=== PATIENT | male | born 1950 | race Caucasian/White ===

== ENCOUNTER 2016-08-08 12:50 | Inpatient (IN) | payer OTHER ==
--- NOTE | ~2016-08-08 | CR72 ---
[facility] A Service of [facility] & [facility] RADIOLOGY TEXT RESULTS PATIENT: GILMAR MEI LOCATION: [place] [address] : [birth year] UNIT #: [id number] AGE: [address]: Gisell Thornton MD SEX: M ORDER DR: [id number] [facility] [address] [facility] [address]. [place], [place] [address] [id number] E MR#: [id number] Acc #: [id number] NAME: GILMAR MEI. : 1950 SEX: M STUDY DATE/TIME: 08/08/2016 14:43 UNIT: [facility] ROOM: STUDY DESCRIPTION: CR Chest Single View Portable Attending Physician: Amira Blake M.D. Ordering Physician: Amira Blake M.D. Primary Care Physician: Kailyn Angeles M.D. MEDICAL IMAGING REPORT This report is preliminary unless electronic signature is present EXAM Portable chest in 2 views, 08/08/2016. COMPARISON 03/17/2016 CLINICAL HISTORY Short of air, weakness for 2 months. FINDINGS Redemonstration of an elevated right hemidiaphragm. The exam is rotated but allowing for that, no convincing consolidation, effusion, pneumothorax, or suspicious nodule or other acute abnormality. Dictated by... Antonio Christy M.D. THIS IS AN ELECTRONICALLY VERIFIED REPORT Antonio Christy M.D. at 08/15/2016 10:44 AM KHADRA/royer TD: 08/08/2016 16:02 JOB #: [id number] MEDICAL IMAGING REPORT Page 1 of 1 COPY
--- NOTE | ~2016-08-08 | CO ---
Unit #: [id number] #: [id number] Patient: GILMAR MEI [id number] [address] [place], [place] [address] [id number] I MR#: [id number] NAME: GILMAR MEI. ROOM: [facility] Age: 65 Sex: M Admission Date: 08/08/2016 : 1950 Attending Physician: Gisell Thornton M.D. Primary Care Physician: Kailyn Angeles M.D. Consultation Date: 08/10/2016 CONSULTATION REPORT CHIEF COMPLAINT Right foot gangrene. HISTORY OF PRESENT ILLNESS This is a 65-year-old male with a history of multiple medical problems to include diabetes mellitus, peripheral vascular disease, tobacco abuse, previous left leg amputation, has ongoing right foot wounds, which have been unresponsive to conservative care. The patient notes that he has had a right foot wound for 2 years. He now has a 6 cm diameter right posterior heel ulcer with exposed bone, which has not responded to debridement and amniotic tissue grafting. He also has a plantar medial midfoot wound. He has obvious gangrene. Orthopedic consultation is requested for possible qihlj-bmu-ynpi amputation. He had recent ankle brachial indices, which show an ARIS of 0.95 and a toe brachial index of 0.32. MRI shows osteomyelitis of the posterior half of the right calcaneus. PAST MEDICAL HISTORY Diabetes; deep venous thrombosis, on Xarelto; hypertension; tobacco abuse (the patient smokes 3 packs per day); hyperlipidemia. PAST SURGICAL HISTORY Left chott-clw-eslf amputation, cholecystectomy, gastric bypass, mastoid surgery, hernia repair. HOME MEDICATIONS Oxycodone 30 mg p.o. b.i.d., Neurontin, Xarelto, glyburide, atorvastatin, lisinopril. ALLERGIES Promethazine, morphine, codeine. PHYSICAL EXAMINATION VITAL SIGNS: Height 145, BMI 25, temperature 99.4, pulse 86, blood pressure 122/61. GENERAL: Thin male, in no acute distress. MUSCULOSKELETAL: Examination of the right foot shows a 6 cm diameter posterior heel ulcer with exposed calcaneus. He has a 2 cm plantar medial midfoot wound. The foot is malodorous. Sensation is decreased in stocking distribution. DIAGNOSTIC STUDIES IMAGING STUDIES: MRI documents osteomyelitis of the posterior half of the calcaneus. Unit #: [id number] #: [id number] Patient: GILMAR MEI LABORATORY RESULTS: Hematocrit 24.7%. IMPRESSION 1. Right posterior calcaneal heel ulcer with osteomyelitis. 2. Right foot gangrene. 3. Peripheral vascular disease. 4. Diabetes. 5. Tobacco abuse. PLAN 1. The patient requires right vjiyb-kzs-gblt amputation. This procedure was described along with risks of bleeding, infection, nerve damage, failure to heal, need for higher level amputation, prolonged recovery time, inability to use a prosthesis. The patient understands the above risks and agrees to proceed. 2. The patient will receive 1 unit of packed red blood cells tonight prior to surgery. We will proceed with the surgery on 08/11/2016. Dictated by.Darwin Sue/charito TD: 08/12/2016 03:12 JOB #: [id number] CONSULTATION REPORT Page 1 of 1 X Luis Dillon MD X CONSULTATION REPORT
--- NOTE | ~2016-08-08 | CR127 ---
[facility] A Service of [facility] & [facility] RADIOLOGY TEXT RESULTS PATIENT: GILMAR MEI LOCATION: [place] [address] : [birth year] UNIT #: [id number] AGE: [address]: Gisell Thornton MD SEX: M ORDER DR: [id number] [facility] [address] [facility]. [place], [place] [address] [id number] E MR#: [id number] Acc #: [id number] NAME: GILMAR MEI. : 1950 SEX: M STUDY DATE/TIME: 08/08/2016 14:45 UNIT: [facility] ROOM: STUDY DESCRIPTION: CR Foot Complete Min 3 View Rt Attending Physician: Amira Blake M.D. Ordering Physician: Amira Blake M.D. Primary Care Physician: Kailyn Angeles M.D. MEDICAL IMAGING REPORT This report is preliminary unless electronic signature is present EXAM Right foot, 3 views. CLINICAL HISTORY Right foot oozing wound and redness. FINDINGS There is demineralization in the foot which appears to represent disuse osteopenia. There is a soft tissue defect over the heel that appears to expose or nearly expose the calcaneus. There is no aggressive appearing bone erosion or destruction. Dictated by... Antonio Christy M.D. THIS IS AN ELECTRONICALLY VERIFIED REPORT Antonio Christy M.D. at 08/15/2016 10:44 AM KHADRA/royer TD: 08/08/2016 16:03 JOB #: [id number] MEDICAL IMAGING REPORT Page 1 of 1 COPY
--- NOTE | ~2016-08-08 | MR59 ---
[facility] A Service of [facility] & [facility] RADIOLOGY TEXT RESULTS PATIENT: GILMAR MEI LOCATION: [facility] 319- : [birth year] UNIT #: [id number] AGE: [address]: Gisell Thornton MD SEX: M ORDER DR: [id number] [place] [id number] [facility]. [place], [place] [address] [id number] I MR#: [id number] Acc #: [id number] NAME: GILMAR MEI. : 1950 SEX: M STUDY DATE/TIME: 08/09/2016 18:27 UNIT: [address] ROOM: 319 STUDY DESCRIPTION: MR Foot WWo Contrast Rt Attending Physician: Gisell Thornton M.D. Ordering Physician: Jaden Lopez M.D. Primary Care Physician: Kailyn Angeles M.D. MRI CENTER REPORT This report is preliminary unless electronic signature is present. EXAM MRI of the right foot with and without contrast HISTORY 65-year-old diabetic male with diabetic wound right foot. Wound infection. Evaluate for osteomyelitis. Patient with stage 4 necrotic wound right foot. Prior left above knee amputation. COMPARISON Foot films right foot, 08/08/2016 FINDINGS A wound is located on the plantar aspect of the midfoot and also has open wound on heel and behind heel. Multiplanar multiecho imaging was performed of the right foot utilizing a high field magnet and dedicated protocol. Coronal and axial T1-weighted images were performed following IV gadolinium. The examination demonstrates a large penetrating ulcer along the plantar aspect of the mid foot measuring at least 3.4 cm medial to lateral dimension, about 2.2 cm AP dimension and about 11.0 mm in depth. No extension to bone is identified with this ulcer and no evidence of underlying abscess. A second ulcer is seen along the posterior foot at the level of the heel which extends down to the calcaneus. This ulcer measures at least 3.2 x 3.1 cm in greatest transverse dimensions. There is diffuse marrow edema with T1 marrow replacement within the posterior calcaneus with enhancement postcontrast. Findings are all compatible active osteomyelitis. No osteolysis identified. No drainable fluid collection or abscess. There is diffuse soft tissue swelling and edema throughout the foot with edema particularly around the plantar musculature and along the adductor STS. [facility] A Service of [facility] & [facility] RADIOLOGY TEXT RESULTS PATIENT: GILMAR MEI LOCATION: [facility] 319-01 : [birth year] UNIT #: [id number] AGE: [address]: Gisell Thornton MD SEX: M ORDER DR: armen. Findings are nonspecific and may represent subacute denervation change or nonspecific inflammation. There is marked thickening and increased signal and enhancement at the insertion of the central heel cord of the plantar fascia compatible with active fasciitis and probable tear of the central heel cord of the plantar fascia. Ankle and subtalar joint unremarkable. Ankle tendons unremarkable. IMPRESSION 1. Penetrating ulcer along the plantar aspect of the midfoot with some enhancement of the surrounding tissues compatible with active inflammation but no drainable fluid collection or abscess. No extension of the bone is seen at the level of the midfoot. 2. Large shallow but penetrating ulcer along the posterior heel with extensive marrow changes within the posterior half of the calcaneus compatible with active osteomyelitis and edema. No osteolysis identified. No drainable fluid collection or abscess. 3. Generalized soft tissue swelling and edema about the foot and ankle most likely related to chronic neurovascular disease. 4. Extensive edema along the plantar musculature with thickening and increased signal enhancement of the proximal central heel cord at its calcaneal attachment. Findings compatible with active tendinopathy and at least a high-grade partial tear. Secondary infection not excluded but considered less likely and again no discrete abscess or drainable fluid collection. Dictated by... Luis Love M.D. THIS IS AN ELECTRONICALLY VERIFIED REPORT Luis Love M.D. at 08/10/2016 5:23 PM OLINDA/sean TD: 08/10/2016 12:15 JOB #: [id number] MRI CENTER REPORT Page 1 of 1 COPY
--- NOTE | ~2016-08-08 | EKG ---
PATIENT: GILMAR MEI UNIT #: [id number] Ventricular Rate: 106 BPM Atrial Rate: 106 BPM P-R Interval: 136 ms QRS Duration: 124 ms Q-T Interval: 354 ms QTC Calculation(Bezet): 470 ms P Windsor: 39 degrees Calculated R Windsor: -47 degrees Calculated T Windsor: 23 degrees Diagnosis Line: Sinus tachycardia with occasional Premature Diagnosis Line: ventricular complexes Diagnosis Line: Right bundle branch block Diagnosis Line: Left anterior fascicular block Diagnosis Line: Bifascicular block Diagnosis Line: Abnormal ECG Diagnosis Line: When compared with ECG of 17-MAR-2016 12:11, Diagnosis Line: No significant change was found Diagnosis Line: Confirmed by KATELYN WELCH MD ([id number]) on Diagnosis Line: 08/09/2016 4:36:14 PM INTERPRETING MD: REBEKAH FRANK
--- NOTE | ~2016-08-08 | US136 ---
[facility] A Service of [facility] & [facility] RADIOLOGY TEXT RESULTS PATIENT: GILMAR MEI LOCATION: [place] [address] : [birth year] UNIT #: [id number] AGE: [address]: Gisell Thornton MD SEX: M ORDER DR: [id number] [facility] [address] [facility]. [place], [place] [address] [id number] I MR#: [id number] Acc #: [id number] NAME: GILMAR MEI. : 1950 SEX: M STUDY DATE/TIME: 08/09/2016 9:28 UNIT: C3A PCU ROOM: [facility] STUDY DESCRIPTION: U/L Ext Art Study Ltd Bil Attending Physician: Gisell Thornton M.D. Ordering Physician: Gisell Thornton M.D. Primary Care Physician: Kailyn Angeles M.D. MEDICAL IMAGING REPORT This report is preliminary unless electronic signature is present EXAM Ankle-brachial indices, 08/09/2016 HISTORY Right foot ulcer. Pain and swelling several months. Left amputation. IV left arm. Right side only. FINDINGS Right lower extremity ankle-brachial indices performed. All pressure measurements are in millimeters of mercury. Left brachial pressure not obtained due to intravascular access in the left upper extremity. Patient is status post left lower extremity amputation by history. Right brachial pressure 119. Distal right lower extremity pressures as follows: Dorsalis pedis at ankle 113, posterior tibial at ankle 107, great toe 38. Ankle-brachial index 0.95. Pulse volume recordings multiphasic but of low amplitude at the right posterior tibial artery, weakly triphasic at the right dorsalis pedis artery and biphasic at the right great toe. IMPRESSION 1. Ankle-brachial index on the right is 0.95. This is a normal value suggesting adequate perfusion of the right lower extremity through the level of the ankle in the resting state. 2. Markedly diminished right toe-brachial index of 0.32. This suggests significant small vessel disease in the right foot distal to the level of the ankle. On the basis of this value, the patient may be at significant risk for ischemic sequelae in the right foot. Please correlate with the patient's clinical presentation and risk factors. If it would assist in management, right lower extremity arterial anatomy could be further evaluated with CT angiography or standard catheter angiography. The small vessels of the right foot might best STS. [facility] A Service of [facility] RADIOLOGY TEXT RESULTS PATIENT: GILMAR MEI LOCATION: [place] [address] : [birth year] UNIT #: [id number] AGE: [address]: Gisell Thornton MD SEX: M ORDER DR: be further assessed with standard catheter angiography if the patient is a candidate. Dictated by... To Varela M.D. THIS IS AN ELECTRONICALLY VERIFIED REPORT To Varela M.D. at 08/11/2016 10:53 PM Gage TD: 08/10/2016 11:00 JOB #: [id number] MEDICAL IMAGING REPORT Page 1 of 1 COPY
--- NOTE | ~2016-08-08 | CO ---
Unit #: [id number] #: [id number] Patient: GILMAR MEI [id number] [address] [place], [place] [address] [id number] I MR#: [id number] NAME: GILMAR MEI. ROOM: 319 Age: 65 Sex: M Admission Date: 08/08/2016 : 1950 Attending Physician: Gisell Thornton M.D. Primary Care Physician: Kailyn Angeles M.D. Consultation Date: 08/09/2016 CONSULTATION REPORT REASON FOR CONSULTATION Antibiotic management in a patient with right foot ulcer. HISTORY OF PRESENT ILLNESS This is a 65-year-old male who has a history of diabetes in past, diabetic foot wounds that required an amputation of his left lower extremity. The patient reports to the admitting physician that he has had a right foot wound for years. However, he tells me he has only had it for a few days. It appears that according to the history and physical the patient was seen at the Podiatry office and was recommended to come to the hospital due to infection. The patient denies any fevers to me. He reports that his blood sugars have been fairly controlled. He denies any shortness of breath, nausea, vomiting, diarrhea or any other discomfort. PAST MEDICAL HISTORY Previous diabetic foot ulcer on the left side status post AKA, diabetes type 2 uncontrolled with peripheral neuropathy, hypertension, history of DVT, chronic back pain, history of vestibulopathy with positional dizziness, hyperlipidemia, positive tobacco and BPH. PAST SURGICAL HISTORY Left-sided ptyhw-ftj-yqfh amputation, cholecystectomy, back surgery, gastric bypass surgery, mastoid surgery, hernia repair. SOCIAL HISTORY Positive tobacco. He lives with others. No recent alcohol abuse or drug abuse. ALLERGIES Promethazine, morphine and Codeine. MEDICATIONS The patient is currently on vancomycin and Zosyn. For other medications, please refer to patient's MAR. REVIEW OF SYSTEMS Negative except for as previously mentioned above. He does report that he has some pain in his foot and buttocks. PHYSICAL EXAMINATION GENERAL APPEARANCE: This is a no apparent distressed male who is currently awake, resting in the bed. VITAL SIGNS: Temperature 98.9. Pulse 85. Blood pressure 137/67. Respiratory rate 16. Unit #: [id number] #: [id number] Patient: GILMAR MEI HEENT: His pupils are equal. NECK: Supple. CARDIOVASCULAR: S1, S2. Regular rate and rhythm. PULMONARY: Fairly clear with sparse rhonchi noted. No wheezes. ABDOMEN: Positive bowel sounds. Soft and nontender. EXTREMITIES: A rather large foot wound that appears deep with some purulent drainage noted not only in the wound but there is drainage on the bed sheets. There is surrounding necrosis and surrounding cellulitis. He also has a heel wound that appears to have mostly granulating tissue and no significant drainage. The patient's buttocks show erythema but no open skin breakdown. DIAGNOSTIC STUDIES LABORATORY: BUN 11, creatinine 0.5, sodium 133, potassium 3.6, chloride 100, CO2 23, bilirubin 0.5, AST 13, ALT 10, lactic acid 0.9. WBC count 17, hemoglobin 8.1, hematocrit 25.0, platelets 583. Foot culture is pending. Blood cultures are currently pending. IMPRESSION This is a 65-year-old male with right foot diabetic ulcer. It appears that this wound has been present for a long period of time. At this time, the patient has a malodorous discharge with suspected deep infection and osteomyelitis is not excluded. The patient has surrounding cellulitis and necrotic tissue. At this time, the patient will require surgical intervention and Podiatry is currently awaiting to evaluate the patient but they did send him from his office and are aware of the patient. The patient also has a right heel wound but this appears to be more granulating and not the main issue. The patient did have normal ABIs approximately six months ago but he continues to smoke. At this time agree with vancomycin and Zosyn. I would like to check inflammatory markers including CRP and sed rate as well as a MRI to rule out deep wound infection, osteo and abscess. We will check a CBC in the a.m. We will recommend that OR cultures are taken pathology. Thank you for allowing us to participate in the care of this patient and will further recommendations will follow depending on the patient's clinical course. Dictated by... Natalie Sethi A.P.R.N. for Darwin Perales TD: 08/09/2016 08:23 JOB #: [id number] CONSULTATION REPORT Page 1 of 1 X X CONSULTATION REPORT
--- NOTE | ~2016-08-08 | FU ---
[facility] Nutrition Therapy DATE: 08/15/16 Patient: GILMAR MEI Physician: REAL Address: [address] [place] [address] Room/Bed: [address] [place] [address], Zip: [place] [address] Admit Date: 08/08/16 Date of : 52 Height: 5 8 Weight: 168 76.6 NUTRITION MONITORING/FOLLOW-UP: Reason: Nutrition follow-up Anthropometrics: Ht: 5'8" Adm wt: 75 kg BMI: 25.1 Current wt: 76.4 kg Labs: Na+ 132, Cl- 97, Gluc 231, Ca++ 8.1, Alb 2.0, POC 294 Meds: Levemir, Novolog, Colace, Milk of Magnesia, Lipitor, Glucotrol, Zofran, NaCl, Protonix I&O's: 3040/2601, last BM 08/14 Skin: Stage 2 pressure ucler (R buttock), amputation (LLE/RLE), bruise/scab (BUE) Assessment: Chart reviewed, events noted. Per chart, pt underwent a right ymqzd-zeo-wrwy amputation on 08/11. Pt reports feeling well with no pain and having a very good appetite. Pt reported liking the food and consuming 100% of meals. Pt reports liking Glucerna shakes. RD internet researcher encouraged continued adequate protein and calorie intake. Pt reported no diet questions at this time. See recommendations below. Dx: Increased protein needs RT wounds AEB delayed wound healing, right zlekv-hwp-djsl amputation. -ACTIVE Intervention: 1. Consistent carb diet 2. Glucerna shakes BID Monitoring, Evaluation and Goals: 1. PO intake; consume >75% of meals and supplements -MET 2. Labs; WNL -IN PROGRESS 3. Weight; prevent unintentional weight loss -IN PROGRESS 4. Skin; promote healing -IN PROGRESS Recommendations: 1. Please order Salt Flat Glucerna shakes BID w/ meals. 2. Add MVI and 100-200 mg Vitamin C daily to pt's current medication regimen to promote wound healing. [facility] Nutrition Therapy DATE: 08/15/16 Patient: GILMAR MEI Physician: REAL Address: [address] [place] [address] Room/Bed: [address] [place] [address], Zip: [place] [address] Admit Date: 08/08/16 Date of : [birth year] Height: 5 8 Weight: 168 76.6 3. Consider adjusting insulin regimen to promote adequate blood glucose control noting hyperglycemia. Status: Pt is at a mild nutritional risk. RD will f/u per protocol. Respectfully, Melanie Haas, Operations Coordinator Elizabeth Koch RD, LD [employer] and [employer] Services [facility] cc: client file
--- NOTE | ~2016-08-08 | HP ---
Unit #: [id number] #: [id number] Patient: GILMAR MEI [id number] [place] [facility]. [place], [place] [address] [id number] MR#: [id number] NAME: GILMAR MEI ROOM: Age: 65 Sex: M Admission Date: 08/08/2016 : 1950 Attending Physician: Amira Blake M.D. Primary Care Physician: Kailyn Angeles M.D. HISTORY AND PHYSICAL CHIEF COMPLAINT Right foot ulcer. HISTORY OF PRESENT ILLNESS This is a 65-year-old with history of diabetes with diabetic wound admitted because of right foot wound. According to him, he has had this right foot wound for many years. He has been following with podiatry. This morning he went to the debt counselor's office because the wound looks infected. The debt counselor told him to come to [facility]. Currently, he is complaining of pain in this right foot, 6/10, constant, aggravated with movement, relieved after pain medication. Has nausea. No vomiting, no chest pain, no shortness of breath, no fever, no chills, no dizziness, no passing out. PAST MEDICAL HISTORY 1. History of diabetic foot ulcer on the left side, status post AKA. 2. Previous diabetic foot wound debridements before by debt counselor. 3. History of diabetes mellitus type 2, insulin requiring, uncontrolled with diabetic peripheral neuropathy. 4. Hypertension. 5. History of DVT on Xarelto. 6. Chronic back pain. 7. History of vestibulopathy resulting in positional dizziness. 8. Hyperlipidemia. 9. Smokes 3 packs of cigarettes per day. 10. BPH. PAST SURGICAL HISTORY 1. Left side xgrqe-lti-wstb amputation. 2. Cholecystectomy. 3. Back surgery. 4. Gastric bypass surgery. 5. Mastoid surgery. 6. Hernia repair. HOME MEDICATIONS 1. Glyburide/metformin 5/500 b.i.d. before meals. 2. Atorvastatin 20 daily. 3. Lisinopril 2.5 p.o. daily. 4. Duloxetine 60 mg daily. 5. P-Col Rite one tablet p.o. daily. 6. Xarelto 20 mg p.o. daily. 7. Oxycodone 30 mg p.o. b.i.d. 8. Gabapentin 800 mg t.i.d. Unit #: [id number] #: [id number] Patient: GILMAR MEI 9. Lantus 25 units h.s. ALLERGIES 1. Promethazine. 2. Morphine. 3. Codeine. SOCIAL HISTORY Smokes 3 packs of cigarettes daily. Lives with . Quit alcohol 16 years ago. No illicit drugs. FAMILY HISTORY Positive for diabetes in the mother. REVIEW OF SYSTEMS No headache, no visual changes. No abdominal pain, no diarrhea, no constipation. Skin has right buttock erythema. says he is mostly bedridden. Reviewed 12-point system with him which are negative except as in HPI. PHYSICAL EXAMINATION VITAL SIGNS: Temperature 98.7, pulse 98, respirations 18, blood pressure 124/81. GENERAL: A 65-year-old lying on bed with moderate distress secondary to pain. HEENT: Pupils equal and react to light and accommodation. Dry mucosa present. NECK: Supple. HEART: S1, S2 heard. No murmurs. LUNGS: Clear to auscultation. No crackles no rhonchi. ABDOMEN: Soft, nontender. Bowel sounds are present. EXTREMITIES: Left AKA present. Right side stage IV necrotic foot wound around 6 cm present with other multiple wounds in his foot which are dried up with minimum discharge. Right leg swelling present. NEUROLOGIC: Alert and oriented x3. No focal neurological deficits. SKIN: Buttock wound which shows erythema stage I or II. DIAGNOSTIC STUDIES LABORATORY: Sodium 135, potassium 3.2, creatinine 0.5, AST 16, ALT 12, alkaline phosphatase 117, total bilirubin 0.3, albumin 2.8. INR 1.0. Lactic acid 2.1. WBC 22.5, hemoglobin 8.4, platelets 224. IMAGING: Chest x-ray shows no infiltrates. Right foot x-ray shows soft tissue defect over the heel, appears to expose or nearly expose the calcaneus. No erosion of bone or destruction. ASSESSMENT AND PLAN This is a 65-year-old admitted because of right foot wound. 1. Sepsis from right foot wound. Lactic acid is mildly elevated and WBC is 22. Patient will get vancomycin and Zosyn. Patient will have blood cultures and wound cultures done. Patient will be seen by Infectious Disease and Podiatry. I will keep n.p.o. after midnight for possible I and D or surgery in the morning. 2. Right buttock decubitus ulcer. Continue with local wound care. Stage II present on admission. 3. Diabetes mellitus type 2, uncontrolled, with peripheral neuropathy. Unit #: [id number] #: [id number] Patient: GILMAR MEI Continue sliding scale insulin. 4. Hypertension, controlled. Continue with current home medications. 5. Mild protein malnutrition. I will ask the drier and grinder tender to see later. 6. History of DVT. Patient is on Xarelto. I will hold off on Xarelto because of possible surgery in the morning. Also hold on any kind of anticoagulation including Lovenox until seen by Podiatry. 7. Patient will have vancomycin and Zosyn for IV antibiotics. 8. Discussed with the . Dictated by Darwin Berrios/binh TD: 08/08/2016 17:58 JOB #: [id number] HISTORY AND PHYSICAL Page 1 of 1 X Gisell Thornton MD X HISTORY AND PHYSICAL
--- NOTE | ~2016-08-08 | DS ---
Unit #: [id number] #: [id number] Patient: GILMAR MEI [id number] [address] [place], [place] [address] [id number] I MR#: [id number] NAME: GILMAR MEI. ROOM: [facility] Age: 65 Sex: M Admission Date: 08/08/2016 : 1950 Discharge Date: Attending Physician: Gisell Thornton M.D. Primary Care Physician: Kailyn Angeles M.D. DISCHARGE SUMMARY DISCHARGE DIAGNOSES 1. Sepsis from right foot wound. 2. Right foot osteomyelitis. 3. Diabetic foot ulcer, status post below-knee amputation. 4. Right buttock decubitus ulcer, stage 2, present on admission. 5. Diabetes mellitus type 2, uncontrolled, insulin dependent. 6. Hypertension. 7. Severe protein malnutrition. 8. History of deep venous thrombosis on Xarelto. 9. Chronic back pain. 10. History of vestibulopathy resulting in positional dizziness. 11. Smoking. 12. Hyperlipidemia. 13. Benign prostatic hypertrophy. 14. Anemia, acute on chronic likely iron deficiency. No active bleeding. 15. History of left above-knee amputation. CONSULTATION Dr. Dillon. PROCEDURE Patient had right below-knee amputation with long leg cast application. DIAGNOSTIC STUDIES LABORATORY: Glucose 111, sodium 135, potassium 4.4, and creatinine 0.5. WBC 7.3, hemoglobin 9, and platelets 338. Blood cultures negative. IMAGING: MRI of the right foot shows penetrating ulcer in the midfoot. Also, there is a posterior heel large shallow ulcer with active osteomyelitis and edema. HOSPITALIZATION COURSE This is a 65-year-old admitted because of right foot ulcer. 1. Right foot osteomyelitis with diabetic foot ulcer. Patient seen by Dr. Dillon. Patient had right below-knee amputation with cast application. Currently pain controlled. Patient will be discharged to rehab and follow with Dr. Dillon in one week's time. 2. Diabetes mellitus type 2, uncontrolled with insulin dependent. Continue with insulin. 3. Severe anemia, iron deficiency, acute on chronic. Patient received blood transfusion. 4. Severe protein malnutrition. Patient was seen by dietitian. 5. Hypertension, uncontrolled. Currently stable. 6. History of BPH. Currently, patient has Hutton catheter. I am going Unit #: [id number] #: [id number] Patient: GILMAR MEI to discontinue and do voiding trial. I started him on Flomax 0.4 mg p.o. daily. 7. History of DVT. Patient is on Xarelto. 8. Smoking. Advised to quit. ALLERGIES 1. Promethazine. 2. Morphine. 3. Codeine. DISCHARGE MEDICATIONS 1. Xarelto 10 mg p.o. daily. 2. Neurontin 800 three times daily. 3. Cymbalta 60 mg p.o. daily. 4. Nicotine 21 mg transdermal daily. 5. Colace 100 p.o. b.i.d. 6. Lipitor 20 daily. 7. Lisinopril 2.5 daily. 8. Lantus 15 units subcu. b.i.d. 9. NovoLog high-dose sliding scale. 10. OxyContin 30 mg p.o. b.i.d. 11. Percocet 5 mg q.6 p.r.n. pain. 12. Glipizide 5 mg p.o. b.i.d. 13. Flomax 0.4 mg p.o. daily. DISPOSITION Patient will be discharged to rehab once bed available and precert done. DISCHARGE INSTRUCTIONS 1. Follow up with Dr. Dillon in one week's time. 2. Patient will have voiding trial before discharge. If he cannot void in 6-8 hours' time, patient will be having Hutton catheter upon discharge. DISCHARGE TIME TAKEN Thirty-two minutes. Dictated by... Darwin Berrios/aun TD: 08/16/2016 12:08 JOB #: [id number] DISCHARGE SUMMARY Page 1 of 1 X Gisell Thornton MD X DISCHARGE SUMMARY
--- NOTE | ~2016-08-08 | OR ---
Unit #: [id number] #: [id number] Patient: GILMAR MEI [id number] [address] [place], [place] [address] [id number] I MR#: [id number] NAME: GILMAR MEI ROOM: [facility] Date of Procedure: 08/11/2016 Admission Date: 08/08/2016 Surgeon: Cookie Dillon M.D. : 1950 Attending Physician: Gisell Thornton M.D. Primary Care Physician: Kailyn Angeles M.D. OPERATIVE REPORT PREOPERATIVE DIAGNOSIS Right foot gangrene. POSTOPERATIVE DIAGNOSIS Right foot gangrene. PROCEDURE PERFORMED Right eodnh-fhj-tyua amputation with long leg cast application ([id number]). PROTECTIVE SERVICE SPECIALIST Antonio. ANESTHESIA General. INDICATIONS FOR PROCEDURE The patient is a 65-year-old male with diabetes and peripheral vascular disease, who has a long smoking history. He has a 2 year history of a wound in the posterior right heel, which has not responded to conservative care. He now has a 6 cm diameter posterior heel decubitus ulcer with exposed calcaneus. MRI documents calcaneal osteomyelitis. The patient has failed operative debridement, amniotic graft placement, and prolonged IV antibiotics. The patient is therefore to undergo amputation of this unsalvageable right leg. He has a previous left bvysb-riv-zxca amputation and uses an electric wheelchair. He is a poor rehabilitation candidate for ambulation. DESCRIPTION OF PROCEDURE The patient was taken to the operating room and placed in a supine position and general anesthetic was induced. The right leg was identified as the correct operative location during the time-out procedure. The IV antibiotic protocol was not followed because he was on preoperative IV antibiotics. The right leg was then prepped and draped in the usual sterile fashion. The leg was exsanguinated and the thigh tourniquet inflated to 250 mmHg. A transverse incision was made 14 cm distal to the knee joint over the tibia and extended in a long posterior flap. The tibia was exposed with subperiosteal dissection. Hohmann retractors were placed. The sagittal saw was used to cut the tibia 14 cm distal to the knee joint. The anterior distal edge of the tibia was beveled with the saw. The anterior compartment was divided. The anterior neurovascular bundle was doubly ligated with 0 silk. The fibula was exposed subperiosteally. Hohmann retractors were placed and the fibula was cut 2 cm proximal to the tibial section with a microsagittal saw. The posterior Unit #: [id number] #: [id number] Patient: GILMAR MEI soft tissues were then divided with an amputation knife. The tibial vessels and peroneal vessels were doubly ligated with 0 silk. The tibial nerve was dissected high in the wound and cut proximal to the level of the tibial cut. The tourniquet was released. Bleeding was controlled with electrocautery. A medium Hemovac drain was placed. The posterior muscle fascia was repaired to the anterior muscle fascia and to the periosteum of the tibia using multiple 0 Vicryl ndkrce-pn-opamz sutures. The subcutaneous tissue was closed with 2-0 and 3-0 Vicryl sutures. The skin was closed with skin ronald. Xeroform gauze, dressing, sponges, Webril, Brown wrap, and a long leg fiberglass cast were applied. The patient was then awakened in the operating room and transported to the recovery room in stable condition. ESTIMATED BLOOD LOSS 50 mL. COMPLICATIONS None. SPECIMENS Right leg. TOURNIQUET TIME 20 minutes. Dictated byDarwin Harrison/charito TD: 08/12/2016 02:53 JOB #: [id number] OPERATIVE REPORT Page 1 of 1 X Luis Dillon MD X PROCEDURE OPERATIVE NOTE
--- NOTE | ~2016-08-08 | A ---
[facility] Nutrition Therapy DATE: 08/09/16 Patient: GILMAR MEI Physician: REAL Address: [address] [place] [address] Room/Bed: [address] [place] [address], Zip: [place] [address] Admit Date: 08/08/16 Date of : [birth year] Height: 5 8 Weight: 165 75 NUTRITIONAL ASSESSMENT: REASON: Consult RE: Dietitian to see 65 yo male admitted for right foot ulcer PMH: DM- uncontrolled, left AKA, HTN, BPH, DVT, HLD, gastric bypass, hernia repair, smoker Anthropometrics: Ht: 68" Wt: 75 kg BMI: 25.1 Labs: Na+ 133 Creat 0.5 Ca++ 7.8 Alb 2.0 Accuchecks 81-109 CRP 10.6 Meds: Levemir, lipitor, novolog, D5%, glucotrol, zofran, protonix I/O & Bowel function: 450/1440, last BM 08/08 Skin Integrity: Bruise BUE Right DM foot ulcer stage Stage II decubitus ulcer right buttock Left AKA Edema: None noted Diet: Consistent carbohydrate Assessment: Chart reviewed, events noted. 65 yo male admitted for right DM foot ulcer with sepsis and h/o uncontrolled DM. RD spoke with the pt and his at bedside. Pt reports having a fair appetite, and consumed 100% of his lunch per his 's report. Pt has been NPO for most of his admission d/t procedures. Pt reports early satiety when eating, and is unsure about recent weight loss. RD discussed the importance of adequate protein-energy intake, and provided consistent carbohydrate diet education. The pt's seemed interested and requested materials. RD suggested small, frequent meals and Glucerna shakes. Pt reports that he has tried Glucerna in the past and liked it. RD will order. RD provided printed materials and encouraged the pt to contact RD with any questions. Dx: Increased protein needs RT wounds AEB delayed wound healing. Intervention: 1. Consistent carbohydrate diet 2. Glucerna BID Monitoring, Evaluation and Goals: 1. Oral intake; tolerate >50-75% of meals and supplements [facility] Nutrition Therapy DATE: 08/09/16 Patient: GILMAR MEI Physician: REAL Address: [address] [place] [address] Room/Bed: [address] [place] [address], Zip: [place] [address] Admit Date: 08/08/16 Date of : [birth year] Height: 5 8 Weight: 165 75 2. Improvement in labs; Ca++, monitor gluc 3. Weight; prevent unintentional weight loss 4. Skin; promote healing, prevent further breakdown Recommendations: 1. Continue consistent carbohydrate diet as tolerated. 2. Glucerna BID for supplemental nutrition. 3. Encourage adequate PO intake and compliance with diet as needed. Pt is at mild-moderate nutritional risk. Respectfully, KAI CALL RD, LD Food and Nutritional Services [facility] cc: client file
[~2016-08-08 12:50] MED LIST: CITALOPRAM HBR40 MG PO; CRESTOR10 MG PO; DULOXETINE HCL60 M1 PO; FLOMAX0.4 M1 PO; GABAPENTIN800 MG PO; GLYBURIDE-METFO1 TA3 PO; HYDROCODON-ACE1 EAC4 PO; LANTUS100 U/M1 SUBQ; LANTUS100 U/ML SUBQ; LEVAQUIN PO; LIPITOR20 MG PO; LISINOPRIL20 MG PO; MEDI-MECLIZINE25 M1 PO; METAGLIP 2.5/501 TAB PO; OXYCODONE HCL30 MG PO; RA PROBIOTIC C PO; WARFARIN SODIUM6 M1 PO; ZESTRIL2.5 MG PO
[2016-08-08 14:39] LABS: BASOPHIL# 0.1 X10e3 (0-0.3); BASOPHIL% 0.3 % (0-2.5); DIFF IND YES; EOSINOPHIL# 0.1 X10e3 (0-0.7); EOSINOPHIL% 0.3 % (0.0-7.0); HEMATOCRIT 26.6 % (38.0-50.0); HEMOGLOBIN 8.4 gm/dL (13.0-16.0); LYMPHOCYTE# 1.5 X10e3 (1.0-3.5); LYMPHOCYTE% 6.5 % (17.0-45.0); MEAN CELL VOLUME 86.2 FL (83-96); MEAN CORPUSCULAR HEMOGLOBIN 27.4 PG (28-34); MEAN CORPUSCULAR HGB CONC 31.7 g/dL (30-36); MEAN PLATELET VOLUME 7.4 FL (6.5-11.5); MONOCYTE# 1.2 X10e3 (0-1.0); MONOCYTE% 5.2 % (3.0-12.0); NEUTROPHIL# 19.7 X10e3 (1.5-7.1); NEUTROPHIL% 87.7 % (40-75); PLATELET COUNT 724 X10e3 (140-420); RED BLOOD COUNT 3.08 X10e (3.90-5.60); RED CELL DISTRIBUTION WIDTH 15.3 % (11.0-15.5); WHITE BLOOD COUNT 22.5 X10e3 (4.0-10.5)
[2016-08-08 14:41] LABS: ALBUMIN SERUM 2.8 g/dL (3.5-5.0); BILIRUBIN, DIRECT 0.1 mg/dL (0.0-0.2); BILIRUBIN,INDIRECT 0.2 mg/dL (0.0-0.9); BILIRUBIN,TOTAL 0.3 mg/dL (0.2-2.0); CALCIUM SERUM 8.8 mg/dL (8.4-10.2); CREATININE SERUM 0.5 mg/dL (0.6-1.4); GLOM FILT RATE Estimated 114.6 mL/min (>60); POTASSIUM 3.2 mmol/L (3.5-5.1); PROTEIN TOTAL SERUM 7.9 g/dL (6.0-8.3)
[2016-08-08 14:42] LABS: PARTIAL THROMBOPLASTIN TIME 30.7 SECONDS (23.5-31.3); PROTHROMBIN TIME (PATIENT) 10.1 SECONDS (9.6-11.5)
[2016-08-08 15:32] LABS: ANISOCYTOSIS MOD; PLATELET ESTIMATE INCREASED (NORMAL); POIKILOCYTOSIS SL
[2016-08-08 19:59] LABS: CK TOTAL 30 IU/L (36-174)
[2016-08-08] MEDS ORDERED: METAGLIP PO (20:54)
[2016-08-08] MEDS ORDERED: LISINOPRIL2.5 MG PO (23:29)
[2016-08-08] MEDS ORDERED: LIPITOR20 MG PO (23:29)
[2016-08-08] MEDS ORDERED: DULOXETINE HCL60 M1 (23:31)
[2016-08-08] MEDS ORDERED: [UNRECOGNIZED DRUG - OTHER] PO (23:33)
[2016-08-08] MEDS ORDERED: XARELTO20 MG PO (23:34)
[2016-08-08] MEDS ORDERED: OXYCODONE HCL30 MG PO (23:36)
[2016-08-08] MEDS ORDERED: NEURONTIN800 MG PO (23:37)
[2016-08-08] MEDS ORDERED: LANTUS100 U/ML SUBQ (23:39)
[2016-08-09 03:14] LABS: CK TOTAL 38 IU/L (36-174)
[2016-08-09 03:18] LABS: HEMOGLOBIN 8.1 gm/dL (13.0-16.0); MEAN CELL VOLUME 85.2 FL (83-96); MEAN CORPUSCULAR HEMOGLOBIN 27.5 PG (28-34); MEAN CORPUSCULAR HGB CONC 32.2 g/dL (30-36); MEAN PLATELET VOLUME 7.1 FL (6.5-11.5); RED BLOOD COUNT 2.93 X10e (3.90-5.60); RED CELL DISTRIBUTION WIDTH 15.4 % (11.0-15.5); WHITE BLOOD COUNT 17.1 X10e3 (4.0-10.5)
[2016-08-09 03:36] LABS: BILIRUBIN,TOTAL 0.5 mg/dL (0.2-2.0); CALCIUM SERUM 7.8 mg/dL (8.4-10.2); CREATININE SERUM 0.5 mg/dL (0.6-1.4); GLOM FILT RATE Estimated 114.6 mL/min (>60); POTASSIUM 3.6 mmol/L (3.5-5.1); PROTEIN TOTAL SERUM 5.6 g/dL (6.0-8.3)
[2016-08-10 06:14] LABS: HEMATOCRIT 24.7 % (38.0-50.0); HEMOGLOBIN 7.7 gm/dL (13.0-16.0); MEAN CELL VOLUME 85.8 FL (83-96); MEAN CORPUSCULAR HEMOGLOBIN 26.8 PG (28-34); MEAN CORPUSCULAR HGB CONC 31.3 g/dL (30-36); MEAN PLATELET VOLUME 7.5 FL (6.5-11.5); RED BLOOD COUNT 2.88 X10e (3.90-5.60); RED CELL DISTRIBUTION WIDTH 15.5 % (11.0-15.5); WHITE BLOOD COUNT 17.8 X10e3 (4.0-10.5)
[2016-08-10 06:44] LABS: BILIRUBIN,TOTAL 0.3 mg/dL (0.2-2.0); CREATININE SERUM 0.6 mg/dL (0.6-1.4); GLOM FILT RATE Estimated 106.3 mL/min (>60); POTASSIUM 3.7 mmol/L (3.5-5.1); PROTEIN TOTAL SERUM 6.2 g/dL (6.0-8.3)
[2016-08-11 05:51] LABS: HEMATOCRIT 27.8 % (38.0-50.0); MEAN CELL VOLUME 86.4 FL (83-96); MEAN CORPUSCULAR HEMOGLOBIN 28.1 PG (28-34); MEAN CORPUSCULAR HGB CONC 32.5 g/dL (30-36); RED BLOOD COUNT 3.22 X10e (3.90-5.60); RED CELL DISTRIBUTION WIDTH 15.5 % (11.0-15.5); WHITE BLOOD COUNT 17.2 X10e3 (4.0-10.5)
[2016-08-11 06:48] LABS: ALBUMIN SERUM 2.1 g/dL (3.5-5.0); BILIRUBIN,TOTAL 0.7 mg/dL (0.2-2.0); BUN/CREATININE RATIO 8.57; CALCIUM SERUM 8.1 mg/dL (8.4-10.2); CREATININE SERUM 0.7 mg/dL (0.6-1.4); GLOM FILT RATE Estimated 99.8 mL/min (>60); POTASSIUM 3.9 mmol/L (3.5-5.1); PROTEIN TOTAL SERUM 6.3 g/dL (6.0-8.3)
[2016-08-12 03:22] LABS: HEMATOCRIT 26.7 % (38.0-50.0); HEMOGLOBIN 8.8 gm/dL (13.0-16.0); MEAN CELL VOLUME 87.8 FL (83-96); MEAN CORPUSCULAR HGB CONC 33.1 g/dL (30-36); MEAN PLATELET VOLUME 7.1 FL (6.5-11.5); RED BLOOD COUNT 3.04 X10e (3.90-5.60); RED CELL DISTRIBUTION WIDTH 15.5 % (11.0-15.5); WHITE BLOOD COUNT 8.9 X10e3 (4.0-10.5)
[2016-08-12 03:45] LABS: BILIRUBIN,TOTAL 0.6 mg/dL (0.2-2.0); CREATININE SERUM 0.5 mg/dL (0.6-1.4); GLOM FILT RATE Estimated 114.6 mL/min (>60); PROTEIN TOTAL SERUM 6.1 g/dL (6.0-8.3)
[2016-08-13 03:11] LABS: BASOPHIL% 0.5 % (0-2.5); EOSINOPHIL# 0.2 X10e3 (0-0.7); EOSINOPHIL% 2.6 % (0.0-7.0); HEMATOCRIT 26.4 % (38.0-50.0); HEMOGLOBIN 8.7 gm/dL (13.0-16.0); LYMPHOCYTE# 1.4 X10e3 (1.0-3.5); LYMPHOCYTE% 16.3 % (17.0-45.0); MEAN CELL VOLUME 87.3 FL (83-96); MEAN CORPUSCULAR HEMOGLOBIN 28.8 PG (28-34); MEAN PLATELET VOLUME 6.8 FL (6.5-11.5); MONOCYTE# 0.8 X10e3 (0-1.0); MONOCYTE% 9.8 % (3.0-12.0); NEUTROPHIL% 70.8 % (40-75); PLATELET COUNT 506 X10e3 (140-420); RED BLOOD COUNT 3.03 X10e (3.90-5.60); RED CELL DISTRIBUTION WIDTH 15.8 % (11.0-15.5); WHITE BLOOD COUNT 8.5 X10e3 (4.0-10.5)
[2016-08-13 03:15] LABS: DIFF IND NO
[2016-08-13 04:01] LABS: BILIRUBIN,TOTAL 0.3 mg/dL (0.2-2.0); BUN/CREATININE RATIO 16.66; CALCIUM SERUM 8.1 mg/dL (8.4-10.2); CREATININE SERUM 0.6 mg/dL (0.6-1.4); GLOM FILT RATE Estimated 106.3 mL/min (>60); POTASSIUM 4.8 mmol/L (3.5-5.1); PROTEIN TOTAL SERUM 5.6 g/dL (6.0-8.3)
[2016-08-16 03:39] LABS: BASOPHIL# 0.2 X10e3 (0-0.3); BASOPHIL% 2.5 % (0-2.5); EOSINOPHIL# 0.2 X10e3 (0-0.7); HEMATOCRIT 27.7 % (38.0-50.0); LYMPHOCYTE# 2.2 X10e3 (1.0-3.5); LYMPHOCYTE% 30.3 % (17.0-45.0); MEAN CELL VOLUME 85.8 FL (83-96); MEAN CORPUSCULAR HGB CONC 32.7 g/dL (30-36); MEAN PLATELET VOLUME 6.9 FL (6.5-11.5); MONOCYTE# 0.8 X10e3 (0-1.0); MONOCYTE% 11.5 % (3.0-12.0); NEUTROPHIL# 3.9 X10e3 (1.5-7.1); NEUTROPHIL% 52.7 % (40-75); PLATELET COUNT 638 X10e3 (140-420); RED BLOOD COUNT 3.22 X10e (3.90-5.60); RED CELL DISTRIBUTION WIDTH 16.2 % (11.0-15.5); WHITE BLOOD COUNT 7.3 X10e3 (4.0-10.5)
[2016-08-16 03:40] LABS: DIFF IND NO
[2016-08-16 04:01] LABS: CALCIUM SERUM 8.7 mg/dL (8.4-10.2); CREATININE SERUM 0.5 mg/dL (0.6-1.4); GLOM FILT RATE Estimated 114.6 mL/min (>60); POTASSIUM 4.4 mmol/L (3.5-5.1)
== END 2016-08-16 17:20 | DRG 853 ==
LOC: CED 12:50 → CEDOF 17:32 → C3A PCU 17:32 → CED 18:10 → CEDOF 18:10 → C3A PCU 21:58 → C4C 08-11 16:40
PROVIDERS: Emergency Medicine; Internal Medicine; Orthopaedic Surgery
PROC: 2W3LX2Z Immobilization of Right Lower Extremity using Cast (ICD-10-PCS; 2016-08-11)
PROC: 30233N1 Transfusion of Nonautologous Red Blood Cells into Peripheral Vein, Percutaneous Approach (ICD-10-PCS; 2016-08-11)
PROC: 0Y6F0ZZ Detachment at Right Knee Region, Open Approach (ICD-10-PCS; principal; 2016-08-11 12:30)
DX: A41.9 Sepsis, unspecified organism (principal); E43 Unspecified severe protein-calorie malnutrition; L89.312 Pressure ulcer of right buttock, stage 2; E11.52 Type 2 diabetes mellitus with diabetic peripheral angiopathy with gangrene; L03.115 Cellulitis of right lower limb; E87.1 Hypo-osmolality and hyponatremia; L97.419 Non-pressure chronic ulcer of right heel and midfoot with unspecified severity; M86.9 Osteomyelitis, unspecified; E11.621 Type 2 diabetes mellitus with foot ulcer; Z79.4 Long term (current) use of insulin; E11.42 Type 2 diabetes mellitus with diabetic polyneuropathy; Z86.718 Personal history of other venous thrombosis and embolism; M54.9 Dorsalgia, unspecified; G89.29 Other chronic pain; E78.5 Hyperlipidemia, unspecified; F17.200 Nicotine dependence, unspecified, uncomplicated; N40.0 Benign prostatic hyperplasia without lower urinary tract symptoms; Z90.49 Acquired absence of other specified parts of digestive tract; Z98.84 Bariatric surgery status; Z89.612 Acquired absence of left leg above knee; E11.65 Type 2 diabetes mellitus with hyperglycemia; E11.628 Type 2 diabetes mellitus with other skin complications; E11.69 Type 2 diabetes mellitus with other specified complication; I73.9 Peripheral vascular disease, unspecified; E87.6 Hypokalemia; D50.9 Iron deficiency anemia, unspecified; Z68.25 Body mass index [BMI] 25.0-25.9, adult
CPT/HCPCS: 36415; 71010; 73630; 73720; 80048; 80053; 80076; 80202; 82550; 82947; 83605; 84484; 85025; 85027; 85610; 85652; 85730; 86140; 86850; 86900; 86901; 86923; 87040; 88307; 88311; 93005; 93922; 94760; 96365; 97110; 97163; 97167; 97530; 97535; 99285; A9577; G8978-GP; G8979-GP; G8987-GO; G8988-GO; G8989-GO; J0692; J1170; J1815; J2250; J2405; J2543; J3010; J3370; P9016